=== PATIENT | male | born 1980 | race Caucasian/White ===

== ENCOUNTER 2016-11-26 14:33 | Emergency (ER) | payer SELFPAY ==
[~2016-11-26] VITALS: Ht 180.3 cm; Wt 99.8 kg
[~2016-11-26 14:33] MED LIST: ACHD5005 PO; AGM875T PO; ASPI-266 PO; ASPI-892 PO; ASPI325T32 PO; AZIT-21 PO; AZIT500T PO; CEFD300C3 PO; CEPH500C; CLIN300C3 PO; CLN150C PO; DOXY100C2 PO; ERYT333T4 PO; FNT25TD; GENT3.5O18 OD; GUAI120L27 PO; HYDR1TAB PO; IBP600T1 PO; INSU100V6; METO-270; METO-351 PO; NPPH15OP OD; OMEP20CA12 PO; ONDA4TAB8 SL; OXYC-12; SULF1TAB38 PO; TRAM-21 PO
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
--- NOTE | 2016-11-26 15:58 | Diagnostic Imaging Report ---
PROCEDURE: CT head and CT cervical spine without contrast. TECHNIQUE: Multiple contiguous axial images were obtained through the brain and cervical spine without the use of intravenous contrast. Sagittal and coronal reformations through the cervical spine were then performed. INDICATION: Fall. FINDINGS: CT head: There is no intracranial hemorrhage, edema, or mass effect. The brain parenchyma and glaser-white matter differentiation is preserved. There is no hydrocephalus. No extra-axial fluid collection is seen. The calvarium, the orbits and the mastoid air cells appear unremarkable. There is mild mucosal thickening in the anterior ethmoidal air cells bilaterally. CT cervical spine: There is straightening of the lordotic curvature. Alignment at the posterior spinal line, the facet joints, lateral masses of C1 and C2, and the atlanto-occipital joints appear normal. No widening of the predental space. The vertebral body heights are preserved. There is mild posterior osteophyte formation at the C4-C5, C5-C6 and C6-C7 levels. There is no fracture seen. The lung apices appear clear. IMPRESSION: CT head: No intracranial hemorrhage. Mild sinus disease. CT cervical spine: 1. No fracture seen. 2. Mild mid cervical spine degenerative changes with small posterior osteophytes. Dictated by: Dictated on workstation # [id number]
--- NOTE | 2016-11-26 16:02 | Diagnostic Imaging Report ---
INDICATION: Fall from roof. COMPARISON: 12/25/2015. FINDINGS: Frontal and lateral views of the chest demonstrate normal heart size and pulmonary vascularity. The lungs are clear. There are no signs of infiltrate, pleural effusions or pneumothoraces. The visualized osseous structures show no acute abnormalities. IMPRESSION: 1. No acute process. No signs of infiltrates, effusions or pneumothoraces. Dictated by: Dictated on workstation # [id number]
--- NOTE | 2016-11-26 16:03 | Diagnostic Imaging Report ---
INDICATION: Fall from roof. Back pain. COMPARISON: None. FINDINGS: Frontal and lateral views of the thoracic spine were obtained. Visualization of the upper thoracic spine is limited on the lateral projection. Alignment and vertebral heights are maintained. There is no fracture or destructive process. There are no large paraspinal masses. Limited views of the lungs are clear. IMPRESSION: 1. No acute fracture or dislocation of the thoracic spine. Dictated by: Dictated on workstation # [id number]
[2016-11-26] MEDS ORDERED: CYCL5TAB PO (16:15)
[2016-11-26] MEDS ORDERED: NAPR500T PO (16:15)
[2016-11-26 16:20] VITALS: BP 128/70
== END 2016-11-26 16:20 | disposition home or self-care (01) ==
LOC: EDUNIT# 14:33 → ER 14:38
DX: S29.012A Strain of muscle and tendon of back wall of thorax, initial encounter (principal); W13.2XXA Fall from, out of or through roof, initial encounter; Y93.H9 Activity, other involving exterior property and land maintenance, building and construction; Y99.0 Civilian activity done for income or pay
CPT/HCPCS: 70450; 71020; 72072; 72125; 99282

== ENCOUNTER 2022-11-11 15:04 | Emergency (ER) | payer OTHER ==
[~2022-11-11] VITALS: Ht 183 cm; Wt 111.0 kg
[~2022-11-11 15:04] MED LIST changes: +CYCL5TAB PO; -METO-270; +MTP25TSR; +NAPR-1071 PO; -OMEP20CA12 PO; +OMEP20CA18 PO
[2022-11-11] MEDS ORDERED: ATROPINE INJECTION 1 MG/10 ML SYR (ABBOTT) INJ ONE (15:08)
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
[2022-11-11] MEDS ORDERED: LIDOCAINE 1% INJ 20 ML VIAL INJ ONE (15:15)
[2022-11-11] MEDS ORDERED: TETANUS,DIPTH,PERTUSS P/F (BOOSTRIX) 0.5 ML VIAL IM ONE (15:15)
[2022-11-11] MEDS ORDERED: NS IV 1000 ML 1,000 ML ONE (15:21)
[2022-11-11] MEDS ORDERED: ATROPINE INJECTION 1 MG/10 ML SYR (ABBOTT) IV ONE (15:30)
[2022-11-11] MEDS ORDERED: NS IV 1000 ML 1,000 ML IV SCH (15:30)
--- NOTE | 2022-11-11 15:30 | Diagnostic Imaging Report ---
HISTORY: Left index finger injury COMPARISON: None TECHNIQUE: 3 views of the left hand. FINDINGS: No acute fracture seen in the left hand. Alignment is normal. Joint spaces are preserved. There is soft tissue swelling in the left index finger with lacerations. There are punctate hyperdensities scattered about the left thumb and index finger as well as the left wrist. IMPRESSION: 1. Soft tissue edema and laceration of the left index finger with no acute osseous abnormality seen. 2. Multiple punctate hyperdensities about the left hand, thought to represent overlying debris although foreign bodies are not excluded. Dictated by: Dictated on workstation # [id number]
[2022-11-11 15:36] LABS: BASOPHILS # (AUTO) 0.1 10^3/uL (0.0-0.1); BASOPHILS % (AUTO) 1 % (0-10); EOSINOPHILS # (AUTO) 0.2 10^3/uL (0.0-0.3); EOSINOPHILS % (AUTO) 3 % (0-10); HEMATOCRIT 43 % (40-54); HEMOGLOBIN 14.4 g/dL (13.3-17.7); LYMPHOCYTES # (AUTO) 2.9 X 10^3 (1.0-4.0); LYMPHOCYTES % (AUTO) 37 % (12-44); MEAN CORPUSCULAR HEMOGLOBIN 30 pg (25-34); MEAN CORPUSCULAR HGB CONC 33 g/dL (32-36); MEAN CORPUSCULAR VOLUME 90 fL (80-99); MEAN PLATELET VOLUME 10.3 fL (9.0-12.2); MONOCYTES # (AUTO) 0.6 X 10^3 (0.0-1.0); MONOCYTES % (AUTO) 8 % (0-12); NEUTROPHILS % (AUTO) 52 % (42-75); PLATELET COUNT 235 10^3/uL (130-400); WHITE BLOOD COUNT 7.8 10^3/uL (4.3-11.0)
[2022-11-11] MEDS ORDERED: LIDOCAINE 1% INJ 10 ML VIAL ONE (15:36)
[2022-11-11 15:52] LABS: ALBUMIN 4.1 GM/DL (3.2-4.5); CHLORIDE 110 MMOL/L (98-107); POTASSIUM 4.7 MMOL/L (3.6-5.0); SODIUM 140 MMOL/L (135-145)
[2022-11-11 15:53] LABS: CALCIUM 8.9 MG/DL (8.5-10.1)
[2022-11-11 15:54] LABS: GLUCOSE 142 MG/DL (70-105)
[2022-11-11 15:55] LABS: TOTAL PROTEIN 6.8 GM/DL (6.4-8.2)
[2022-11-11 15:56] LABS: BILIRUBIN,TOTAL 0.3 MG/DL (0.1-1.0); CARBON DIOXIDE 20 MMOL/L (21-32)
[2022-11-11 15:58] LABS: ALKALINE PHOSPHATASE 67 U/L (40-136); CREATININE SERUM 1.33 MG/DL (0.60-1.30); GFR ESTIMATED 69
[2022-11-11 15:59] LABS: BUN/CREATININE RATIO 16
[2022-11-11 16:01] LABS: ALANINE AMINOTRANSFERASE 47 U/L (0-55)
[2022-11-11] MEDS ORDERED: CEPH500T PO (16:12)
[2022-11-11 16:51] VITALS: BP 135/84
== END 2022-11-11 16:51 | disposition home or self-care (01) ==
LOC: EDUNIT# 15:04 → ER 15:07
DX: S61.211A Laceration without foreign body of left index finger without damage to nail, initial encounter (principal); R55 Syncope and collapse; R00.1 Bradycardia, unspecified; Z23 Encounter for immunization; W26.8XXA Contact with other sharp object(s), not elsewhere classified, initial encounter
CPT/HCPCS: 36415; 64450; 73130; 80053; 83735; 84484; 85025; 90715; 93005; 99291

== ENCOUNTER 2023-06-15 05:35 | Emergency (ER) | payer SELFPAY ==
[~2023-06-15] VITALS: Ht 185.5 cm; Wt 113.4 kg
[~2023-06-15 05:35] MED LIST changes: +CEPH500T PO
[2023-06-15] MEDS ORDERED: LACTATED RINGERS 1,000 ML 1,000 ML IV SCH (07:00)
[2023-06-15] MEDS ORDERED: KETOROLAC INJ 15 MG/ML VIAL IVP ONE (07:00)
[2023-06-15] MEDS ORDERED: ONDANSETRON INJECTION 4 MG/2 ML (SDV) IVP ONE (07:00)
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
[2023-06-15 07:33] LABS: ALBUMIN 3.8 GM/DL (3.2-4.5); POTASSIUM 3.9 MMOL/L (3.6-5.0)
[2023-06-15 07:34] LABS: CALCIUM 8.7 MG/DL (8.5-10.1)
[2023-06-15 07:36] LABS: TOTAL PROTEIN 6.5 GM/DL (6.4-8.2)
[2023-06-15 07:37] LABS: BASOPHILS % (AUTO) 1 % (0-10); BILIRUBIN,TOTAL 0.3 MG/DL (0.1-1.0); EOSINOPHILS # (AUTO) 0.1 10^3/uL (0.0-0.3); EOSINOPHILS % (AUTO) 1 % (0-10); HEMATOCRIT 55 % (40-54); HEMOGLOBIN 18.2 g/dL (13.3-17.7); LYMPHOCYTES # (AUTO) 1.3 10^3/uL (1.0-4.0); LYMPHOCYTES % (AUTO) 20 % (12-44); MEAN CORPUSCULAR HEMOGLOBIN 31 pg (25-34); MEAN CORPUSCULAR HGB CONC 33 g/dL (32-36); MEAN CORPUSCULAR VOLUME 94 fL (80-99); MEAN PLATELET VOLUME 10.3 fL (9.0-12.2); MONOCYTES # (AUTO) 0.8 10^3/uL (0.0-1.0); MONOCYTES % (AUTO) 12 % (0-12); NEUTROPHILS # (AUTO) 4.3 10^3/uL (1.8-7.8); NEUTROPHILS % (AUTO) 66 % (42-75); PLATELET COUNT 154 10^3/uL (130-400); WHITE BLOOD COUNT 6.5 10^3/uL (4.3-11.0)
[2023-06-15 07:39] LABS: CREATININE SERUM 1.16 MG/DL (0.60-1.30)
[2023-06-15] MEDS ORDERED: LACTATED RINGERS 1,000 ML 1,000 ML IV STA (08:17)
[2023-06-15] MEDS ORDERED: ONDA4TAB11 SL (09:07)
[2023-06-15 09:16] VITALS: BP 128/76
== END 2023-06-15 09:16 | disposition home or self-care (01) ==
LOC: EDUNIT# 05:35 → ER 05:39
DX: K52.9 Noninfective gastroenteritis and colitis, unspecified (principal); R79.81 Abnormal blood-gas level
CPT/HCPCS: 36415; 80053; 83690; 85025; 96361; 96374; 96375